=== PATIENT | male | born 1965 | race Caucasian/White ===

== ENCOUNTER 2016-08-09 10:20 | Day surgery (SDC) | payer OTHER ==
[~2016-08-09] VITALS: Ht 172.7 cm; Wt 98.7 kg
[~2016-08-09 10:20] MED LIST: ALDACTONE 25MG25 M1 PO; ASPIRIN E.C. 8181 MG PO; BENICAR HCT 12.1 TAB PO; BYSTOLIC10 MG PO; CORDARONE200 MG/TAB PO; COREG 25MG25 MG/TAB PO; COUMADIN 3MG3 MG/TAB PO; COZAAR 25MG25 MG/TAB PO; DIGITEK0.125 MG PO; HYDRODIURIL50 MG PO; KLOR-CON M2020 MEQ PO; LASIX 40MG TABL40 MG PO; LIPITOR 40MG TA40 MG PO; LORTAB ELIX0.5 MG/ML PO; MAGIC MOUTH PO; MELOXICAM; MICARDIS HCT 121 TA1 PO; NICODERM C21 MG/PATC TOP; PRIL40 PO; SYNTHROID0.1 MG/TAB PO; TENORMIN 2525 MG/TAB PO; ZESTRIL 20MG TA20 MG PO
[2016-08-09] MEDS ORDERED: ZOCOR 10MG10 MG PO (10:46)
[2016-08-09] MEDS ORDERED: TIROSINT50 MC1 PO (10:46)
[2016-08-09] MEDS ORDERED: COZAAR 50MG50 MG/TAB PO (10:47)
[2016-08-09] MEDS ORDERED: LOPRESSOR 550 MG/TAB PO (10:48)
[2016-08-09 11:08] VITALS: BP 183/109; PULSE 65; TEMP 98.3
[2016-08-09 12:45] VITALS: BP 141/93; PULSE 64; TEMP 97.5
[2016-08-09 13:45] VITALS: BP 134/88; PULSE 57
== END 2016-08-09 13:16 | disposition home or self-care (01) ==
LOC: SDCO 10:20
DX: K22.2 Esophageal obstruction (principal); K44.9 Diaphragmatic hernia without obstruction or gangrene; R13.12 Dysphagia, oropharyngeal phase; K21.9 Gastro-esophageal reflux disease without esophagitis
CPT/HCPCS: C1726; J2250; J3010; J7030